=== PATIENT | female | born 1965 | race Two or more races ===

== ENCOUNTER 2024-09-19 12:18 | Emergency (ER) | payer BC, OTHER, SELFPAY ==
[2024-09-19 12:23] VITALS: BP 139/93; PULSE 90; TEMP 37; O2SAT 100; BMI 33.1
--- NOTE | 2024-09-19 12:34 | ECG_ITS ---
[facility] Test Date: 2024-09-19 Pat Name: KAMINI COLEMAN Department: Room: - Gender: Female Slip Cover Maker: : [id number] Requested By: [id number] Order Number: [id number] Reading MD: BELLO MUNIZ M.D. Measurements Intervals [place] Rate: 85 P: 58 [place]: 156 QRS: 49 QRSD: 78 T: 50 QT: 324 QTc: 366 Interpretive Statements 1100 Sinus rhythm 9110 normal ECG No previous ECG available for comparison Electronically Signed On 09-19-2024 20:30:15 EST by BELLO MUNIZ M.D.
--- NOTE | 2024-09-19 12:34 | ED_ITS ---
HPI - SOB/Dyspnea General Chief Complaint: Shortness of Breath/Dyspnea Stated Complaint: SOB CHEST PAIN COUGH Time Seen by Provider: 09/19/24 12:27 Source: patient Mode of arrival: walk-in Limitations: no limitations History of Present Illness HPI Narrative: The patient is a 59-year-old female coming to the ER with concern of cough that has been continuous since she had a diagnosis of flu almost a month ago, she mentioned that the cough started few days ago with the chest pain that usually only when she is coughing, The patient also complained of mild nausea she had no diarrhea and she is complaining of some leg pain Related Data Previous Rx's ?Medication ?Instructions ?Recorded doxycycline monohydrate 100 mg 100 mg PO BID 7 days #14 caps 09/19/24 capsule guaifenesin 600 mg tablet, 600 mg PO BID PRN cough #14 tabs 09/19/24 extended release 12 hr (Mucinex) Allergies Allergy/AdvReac Type Severity Reaction Status Date / Time No Known Drug Allergies Allergy Verified 09/19/24 12:23 Review of Systems ROS Status of ROS 10 or more systems reviewed and unremark able except as noted in history and below PFSH PFSH Social History Little interest or pleasure in doing things: not at all Feeling down, depressed, or hopeless: not at all Exam Narrative Exam Narrative: Nurses notes and vital signs reviewed and patient is not hypoxic. General: Well-appearing and in no apparent distress. Skin: Warm, dry, no pallor noted. No rash. Head: Normocephalic, atraumatic. Neck: Supple, non-tender. Cardiovascular: Regular Rate and Rhythm without murmur, gallop or rub. Respiratory: No accessory muscle use or respiratory distress. Lungs are clear to auscultation, no wheezing, rales or rhonchi Chest Wall: no tenderness Back: No midline thoracic or lumbar vertebral tenderness. No CVA tenderness Musculoskeletal: normal ROM, no calf or popliteal tenderness, no lower extremity edema/swelling GI: Abdomen is soft, non-distended. Normal bowel sounds. No masses appreciated. No tenderness to palpation. No rebound, guarding, or rigidity noted. Neurological: A&O x4. No cranial nerve dysfunction observed. , Moves all extremities. Sensation intact. Psychiatric: Cooperative and interactive. Normal mood and affect. Constitutional Vital Signs, click to edit/add: Last Vital Signs Temp 98.6 F 09/19/24 12:23 Pulse 90 09/19/24 12:23 Resp 18 09/19/24 12:23 BP 139/93 H 09/19/24 12:23 Pulse Ox 100 09/19/24 12:23 O2 Del Method Room Air 09/19/24 12:23 Course Vital Signs Vital signs: Vital Signs Temperature 98.6 F 09/19/24 12:23 Pulse Rate 90 09/19/24 12:23 Respiratory Rate 18 09/19/24 12:23 Blood Pressure 139/93 H 09/19/24 12:23 Pulse Oximetry 100 09/19/24 12:23 Oxygen Delivery Method Room Air 09/19/24 12:23 Temperature 98.6 F 09/19/24 12:23 Pulse Rate 90 09/19/24 12:23 Respiratory Rate 18 09/19/24 12:23 Blood Pressure 139/93 H 09/19/24 12:23 Pulse Oximetry 100 09/19/24 12:23 Oxygen Delivery Method Room Air 09/19/24 12:23 MDM - SOB/Dyspnea MDM Narrative Medical decision making narrative: The patient EKG upon arrival showing sinus rhythm with a heart rate of [address] elevation or depression CBC and chemistry showed no acute significant although I did explain to the patient that she definitely need to drink enough water on a daily basis Chest x-ray shows no acute pathology as well The patient does smoke cigarettes and with her history of cough that been at least for a month the patient recovered antibiotic for possible COPD bronchitis The patient is to follow up with primary care physician in next 2-3 days or to return to the emergency department should any of the signs or symptoms worsen or new symptoms develop. The patient agrees with the following Diagnosis and Treatment plan and the patient will be discharged home. Lab Data Labs: Lab Results 09/19/24 Range/Units 12:32 WBC 4.4 (4.0-11.0) 10^3/uL RBC 4.40 (4.20-5.40) 10^6/uL Hgb 13.2 (12.0-16.0) g/dL Hct 38.2 (36.0-48.0) % MCV 86.8 (81.0-99.0) fL MCH 30.0 (26.7-34.0) pg MCHC 34.6 (29.9-35.2) g/dL RDW 12.8 (11.0-15.0) % Plt Count 167 (150-450) 10^3/uL MPV 9.9 (9.5-13.5) fL Neut % (Auto) 67.9 (43.0-75.0) % Lymph % (Auto) 17.7 L (20.5-60.0) % [place] % (Auto) 9.4 (1.7-12.0) % Eos % (Auto) 4.1 (0.9-7.0) % Baso % (Auto) 0.7 (0.2-2.0) % Neut # (Auto) 3.0 (1.4-6.5) 10^3/uL Lymph # (Auto) 0.8 L (1.2-3.8) 10^3/uL [place] # (Auto) 0.4 (0.3-0.8) 10^3/uL Eos # (Auto) 0.2 (0.0-0.7) 10^3/uL Baso # (Auto) 0.0 (0.0-0.1) 10^3/uL Abs Immat Gran (auto) 0.01 (0.00-0.03) 10^3/uL Imm/Tot Granulo (auto) 0.2 (0.0-0.5) % Sodium 143 (136-145) mmol/L Potassium 3.6 (3.5-5.1) mmol/L Chloride 106 (98-107) mmol/L Carbon Dioxide 28.6 (21.0-32.0) mmol/L Anion Gap 12.0 BUN 15.0 (7.0-18.0) mg/dL Creatinine 1.04 H (0.55-1.02) mg/dL Est GFR ( Amer) >60 (>=60 mL/min/1.73m^2) Est GFR (Non-Af Amer) 55 L (>=60 mL/min/1.73m^2) BUN/Creatinine Ratio 14.4 Glucose 98 (74-106) mg/dL Calcium 8.6 (8.5-10.1) mg/dL Total Bilirubin 0.4 (0.2-1.0) mg/dL AST 18 (15-37) U/L ALT 26 (14-59) U/L Alkaline Phosphatase 92 (46-116) U/L Troponin I High Sens <4.0 L (4.0-51.3) pg/mL Total Protein 7.1 (6.4-8.2) g/dL Albumin 3.8 (3.4-5.0) g/dL Globulin 3.3 g/dL Albumin/Globulin Ratio 1.2 Discharge Plan Discharge Chief Complaint: Shortness of Breath/Dyspnea Clinical Impression: Bronchitis, COPD (chronic obstructive pulmonary disease) Patient Disposition: Home, Self-Care Time of Disposition Decision: 13:28 Condition: Good Prescriptions / Home Meds: New doxycycline monohydrate 100 mg capsule 100 mg PO BID 7 Days Qty: 14 0RF guaifenesin [Mucinex] 600 mg tablet extended release 12hr 600 mg PO BID PRN (Reason: cough) Qty: 14 0RF Print Language: Vietnamese Instructions: Chronic Bronchitis (DC) Referrals: Physician,Non-Staff, MD [Primary Care Provider] - 1 week
[2024-09-19] MEDS: FAMOTIDINE/PF 20 MG/2 ML VIAL IV (12:45)
[2024-09-19] MEDS: ONDANSETRON PF 4 MG/2 ML VIAL IV (12:45)
[2024-09-19 12:59] LABS: Basophils Percent Auto 0.7 % (0.2-2.0); Eosinophils Absolute Auto 0.2 10^3/uL (0.0-0.7); Eosinophils Percent Auto 4.1 % (0.9-7.0); Hematocrit 38.2 % (36.0-48.0); Hemoglobin 13.2 g/dL (12.0-16.0); Immature Granulocytes Abs Auto 0.01 10^3/uL (0.00-0.03); Immature Granulocytes Pct Auto 0.2 % (0.0-0.5); Lymphocytes Absolute Auto 0.8 10^3/uL (1.2-3.8); Lymphocytes Percent Auto 17.7 % (20.5-60.0); Mean Corpuscular HGB Conc 34.6 g/dL (29.9-35.2); Mean Corpuscular Volume 86.8 fL (81.0-99.0); Mean Platelet Volume 9.9 fL (9.5-13.5); Monocytes Absolute Auto 0.4 10^3/uL (0.3-0.8); Monocytes Percent Auto 9.4 % (1.7-12.0); Neutrophils Percent Auto 67.9 % (43.0-75.0); Platelet Count 167 10^3/uL (150-450); Red Cell Distribution Width 12.8 % (11.0-15.0); White Blood Count 4.4 10^3/uL (4.0-11.0)
[2024-09-19 13:19] LABS: Alanine Aminotransferase 26 U/L (14-59); Albumin Globulin Ratio 1.2; Albumin Level 3.8 g/dL (3.4-5.0); Alkaline Phosphatase 92 U/L (46-116); Aspartate Amino Transferase 18 U/L (15-37); BUN Creatinine Ratio 14.4; Bilirubin Total 0.4 mg/dL (0.2-1.0); Calcium 8.6 mg/dL (8.5-10.1); Carbon Dioxide 28.6 mmol/L (21.0-32.0); Chloride 106 mmol/L (98-107); Estimated GFR (African America >60 (>=60 mL/min/1.73m^2); Estimated GFR (Non-African Ame 55 (>=60 mL/min/1.73m^2); Globulin 3.3 g/dL; Glucose 98 mg/dL (74-106); Potassium 3.6 mmol/L (3.5-5.1); Sodium 143 mmol/L (136-145); Total Protein 7.1 g/dL (6.4-8.2); Troponin I High Sensitivity <4.0 pg/mL (4.0-51.3)
[2024-09-19 13:36] VITALS: BP 136/88; PULSE 88; O2SAT 98
== END 2024-09-19 13:37 | disposition home or self-care (01) ==
PROVIDERS: Emergency Provider Emergency Medicine; PCP Family Medicine
DX: J44.9 Chronic obstructive pulmonary disease, unspecified (principal); R06.02 Shortness of breath; F17.210 Nicotine dependence, cigarettes, uncomplicated
CPT/HCPCS: 36415; 71045; 80053; 84484; 85025; 93005; 96374; 96375; 99285; J2405; J3490